=== PATIENT | female | born 1960 | race Caucasian/White ===

== ENCOUNTER 2017-08-18 07:05 | Emergency (ER) | payer BC, SELFPAY ==
[2017-08-18 07:06] VITALS: BP 157/83; PULSE 66; RESP 16; TEMP 36.9; O2SAT 98; BMI 40.6
--- NOTE | 2017-08-18 07:13 | XR_ITS ---
XR chest 2V Ordering Physician: Dereck Workman MD Patient Age: 56 years: Female HISTORY: ITS.REASON: pain TECHNIQUE: PA and lateral chest COMPARISON : 08/26/2014 CXR FINDINGS No significant change since the previous chest film. Vascular markings and lung markings upper normal centrally but unchanged with no focal pneumonia nor consolidation. No pneumothorax no pleural effusion. Heart is upper normal in size borderline cardiomegaly. Chest wall appears satisfactory. Ribs and T-spine appears similar. Marginal osteophytes T-spine again noted on AP view Incidental note Relatively short clavicles bilaterally, anatomical variant. IMPRESSION: Lungs clear with nothing definitely acute. No significant change since 2015 CXR
--- NOTE | 2017-08-18 07:24 | HMH.EDCP ---
ED Disposition Clinical Impression: Chest pain Qualifiers: Chest pain type: unspecified Qualified Code(s): R07.9 - Chest pain, unspecified Disposition: Home, Self-Care Condition on Discharge: Good Instructions: DI for Atypical Chest Pain Additional Instructions: Please find attached a prescription for Norvasc 5 mg to be taken daily, in addition to current blood pressure medication, quinapril. His blood pressure is too low, less than systolic 100mmHg, please take half of either Norvasc or quinapril. Dr. Holliday's office noted to schedule follow-up appointment, for additional outpatient workup. Referrals: Sree Holliday MD [Staff Physician] - Time of Disposition: 11:22 - Critical Care Critical Care Time: No Attestation: On , the high probability of a clinically significant, sudden or life threatening deterioration of the following system(s) required my full and direct attention, intervention and personal management. The time I documented below is in addition to time spent performing reported procedures but includes the following listed in this critical care notation. Medical Decision Making - Medical Records Medical records reviewed: Yes: I reviewed the patient's medical records. Vital Signs: 08/18/17 07:06 08/18/17 08:13 08/18/17 09:30 Temperature 98.4 F Temperature Source Oral Pulse Rate Pulse Rate [Brachial] 66 67 62 Respiratory Rate 16 18 18 Blood Pressure Blood Pressure [Right Arm] 157/83 159/73 146/74 Blood Pressure Mean [Right Arm] 107 101 98 Blood Pressure Source Blood Pressure Source [Right Arm] Automatic Cuff Automatic Cuff Automatic Cuff Blood Pressure Position Blood Pressure Position [Right Arm] Sitting Sitting Sitting 02 Sat by Pulse Oximetry 98 97 95 Oxygen Delivery Method Room Air Room Air Room Air 08/18/17 10:17 08/18/17 11:00 08/18/17 11:37 Temperature 98.1 F Temperature Source Oral Pulse Rate 58 L Pulse Rate [Brachial] 60 58 L Respiratory Rate 18 18 18 Blood Pressure 144/72 Blood Pressure [Right Arm] 153/74 144/72 Blood Pressure Mean [Right Arm] 100 96 Blood Pressure Source Automatic Cuff Blood Pressure Source [Right Arm] Automatic Cuff Automatic Cuff Blood Pressure Position Sitting Blood Pressure Position [Right Arm] Sitting Sitting 02 Sat by Pulse Oximetry 100 97 Oxygen Delivery Method Room Air Room Air Room Air - Lab Data Lab results reviewed: Yes: I reviewed the patient's lab results. Lab Results 08/18/17 07:20: Sodium 139, Potassium 4.1, Chloride 105, Carbon Dioxide 23, Anion Gap 15.1 H, BUN 22 H, Creatinine 1.13 H, Estimated Creat Clear 117, Estimated GFR 49 L, Est GFR ( Amer) 60, Glucose 105, Calcium 9.0, Total Bilirubin 0.4, AST 21, ALT 17, Alkaline Phosphatase 50, CK-MB (CK-2) 1.1, Troponin I < 0.02, Total Protein 7.4, Albumin 4.1, Globulin 3.3 H, Albumin/Globulin Ratio 1.2 08/18/17 07:55: WBC 8.2, RBC 4.56, Hgb 13.9, Hct 42.8, MCV 93.8, MCH 30.4, MCHC 32.4, RDW 13.9, Plt Count 246, MPV 8.6, Neut % (Auto) 48.0, Lymph % (Auto) 41.2, [place] % (Auto) 8.1, Eos % (Auto) 1.9, Baso % (Auto) 0.8, Neut # (Auto) 4.0, Lymph # (Auto) 3.4, [place] # (Auto) 0.7, Eos # (Auto) 0.2, Baso # (Auto) 0.1 08/18/17 07:55: D-Dimer 112 08/18/17 07:55: B-Natriuretic Peptide 23 08/18/17 10:00: Total Creatine Kinase 116, CK-MB (CK-2) 1.0, CK-MB (CK-2) Rel Index 0.9, Troponin I < 0.02 Result diagrams: 08/18/17 07:55 08/18/17 07:20 Orders (Tests/Meds): ED MEDICATIONS Discontinued Medications Generic Name Dose Route Start Last Admin Trade Name Freq PRN Reason Stop Dose Admin Amlodipine Besylate 5 mg 08/18/17 10:04 08/18/17 10:16 Norvasc 5mg Tablet PO 08/18/17 10:05 5 mg ONCE ONE Administration Aspirin 324 mg 08/18/17 07:13 08/18/17 08:12 Aspirin 81mg Chewable Tablet PO 08/18/17 07:14 324 mg ONCE ONE Administration ORDERS Category Date Time Status ECG Request by /Nse Stat Y 08/18/17 07:13 Ordered - Radi
[2017-08-18 08:06] LABS: Basophils # 0.1 K/mm3 (0-0.2); Basophils % 0.8 % (0.1-2.0); Eosinophils # 0.2 K/mm3 (0.0-0.4); Eosinophils % 1.9 % (0.1-12.0); Hematocrit 42.8 % (37.0-47.0); Hemoglobin 13.9 g/dL (12.2-16.2); Lymphocytes # 3.4 K/mm3 (0.7-4.5); Lymphocytes % 41.2 K/mm3 (10-50); Mean Corpuscular HGB Conc 32.4 g/dL (31.8-35.4); Mean Corpuscular Hemoglobin 30.4 pg (27.0-31.2); Mean Corpuscular Volume 93.8 fl (81-99); Mean Platelet Volume 8.6 fl (7.4-10.4); Monocytes # 0.7 K/mm3 (0.1-1.0); Monocytes % 8.1 % (1.7-9.3); Platelet Count 246 K/mm3 (142-424); Red Blood Count 4.56 M/mm3 (4.20-5.40); Red Cell Distribution Width 13.9 % (11.5-17.5); White Blood Count 8.2 K/mm3 (4.8-10.8)
[2017-08-18 08:07] LABS: Alanine Aminotransferase 17 U/L (12-78); Albumin Level 4.1 gm/dL (3.4-5.0); Albumin/Globulin Ratio 1.2 (1.1-1.8); Alkaline Phosphatase 50 U/L (46-116); Anion Gap 15.1 mEq/L (5-15); Aspartate Amino Transferase 21 U/L (15-37); Bilirubin,Total 0.4 mg/dL (0.2-1.0); Blood Urea Nitrogen 22 mg/dL (7-18); Carbon Dioxide 23 mmol/L (21.0-32.0); Chloride 105 mmol/L (98-107); Creatine Kinase MB 1.1 mg/ml (0.0-3.6); Creatinine Clearance Estimated 117 mL/min (0-300); Creatinine,Serum 1.13 mg/dL (0.55-1.02); Estimated Glomerular Filt Rate 49 ml/min (>60); GFR (African American) 60 ML/MIN (>60); Globulin 3.3 gm/dl (1.3-3.2); Glucose 105 mg/dL (74-106); Potassium 4.1 mmoL/L (3.5-5.1); Sodium 139 mmol/L (136-145); Total Protein,Serum 7.4 gm/dL (6.4-8.2); Troponin I < 0.02 ng/ml (0.00-0.06)
[2017-08-18 08:13] VITALS: BP 159/73; PULSE 67; RESP 18; O2SAT 97
[2017-08-18 08:32] LABS: D-Dimer 112 (0-400)
--- NOTE | 2017-08-18 08:58 | PC.NURSE ---
MARIANA GRIJALVA spoke with Dr. Infante at this time
[2017-08-18 09:30] VITALS: BP 146/74; PULSE 62; RESP 18; O2SAT 95
--- NOTE | 2017-08-18 10:03 | CA_ITS ---
PROCEDURE: 2-D M-mode and color Doppler study INDICATIONS FOR THE TEST: Chest pain + COPD Heart Murmur Tobacco Smoking Palpitations Fatigue Syncope Edema+ Hypertension+Diabetes Mellitus Rheumatic Fever SOB EATON Obesity+Hyperlipidemia Family History HD Additional History PATIENT INFORMATION HEIGHT:62 WEIGHT:300 GENDER: Female B/P:157/83 2-D/M-MODE INTERPRETATION: 2-D MEASUREMENTS OBSERVED VALUES IN CMS Right Ventricular Dimension (RVDd) 1.7 Interventricular Septum (Thickness)(IVsd) 1.2 Left Ventricular Internal Dimensions(LVIDd) 5.3 Left Ventricular Posterior Wall (Thickness)(LVPWd) 1.1 Aortic Root 2.7 Aortic Cusp Separation 1.9 Left Atrial Dimensions (LAD) 4.5 2D 1. Left atrium is mildly enlarged, left ventricle is normal size, there is mild concentric left ventricular hypertrophy present, visually estimated ejection fraction 55% with no obvious regional wall motion abnormality. 2. The right atrium and right ventricle are normal size and contractility. 3. The aortic valve is minimally thickened and fibrosed. 4. The mitral valve has degenerative changes both an anterior posterior mitral leaflet. 5. The pulmonic valve is poorly visualized. 6. The tricuspid valve is grossly normal. 7. No significant pericardial effusion noted. DOPPLER INTERROGATION: Doppler interrogation of the aortic, mitral and tricuspid valvular reveals presence of mitral regurgitation which is difficult to quantify, this is likely in moderate to severe range, there is blunting of the systolic forward flow seen in the pulmonary vein, if clinically indicated transesophageal echocardiogram is recommended. There is mild tricuspid regurgitation noted, tricuspid and enteric velocity insufficient for calculation of the right ventricular systolic pressure, grade 1 diastolic dysfunction seen with tissue Doppler evidence of raised left atrial pressure. CONCLUSION: 1. Mildly enlarged left atrium, normal left ventricular size, mild concentric left ventricular hypertrophy, visually estimated ejection fraction 55% with no obvious regional wall motion abnormality, grade 1 diastolic dysfunction seen with tissue Doppler evidence of raised left atrial pressure. 2. Degenerative changes seen in the both anterior and posterior mitral leaflet, associated with mitral regurgitation which is difficult to quantify, this is likely a moderate to severe range, if clinically indicated transesophageal echocardiogram is recommended. 3. Mild tricuspid regurgitation. 4. No significant pericardial effusion noted.
--- NOTE | 2017-08-18 10:07 | HMH.CARDCON2 ---
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 He denies any associated shortness of breath, diaphoresis or nausea. Denies any recent exertional symptoms. She does have a long-standing history of hypertension and hypothyroidism. Patient decided to be seen in the ER. EKG is sinus rhythm and unremarkable. Initial troponin is normal. Cardiology consulted for evaluation and recommendations. Her primary care physician is Dr. Teixeira who recommended a stress test a couple years ago but the patient did not have that performed. Review of Systems - *Cardiovascular Reports chest pain, Reports radiating jaw, neck or arm pain - *Respiratory Denies shortness of breath - *Gastrointestinal Denies abdominal pain [facility] History I have reviewed the patient's past medical history: Yes Medical History: Reports:: Hypertension Denies:: Diabetes Mellitus Type 1, Diabetes Mellitus Type 2, Seizures, Transient Ischemic Attacks (TIA) Other Medical History: Reports: Hypothyroidism Other Surgeries: Yes: No Previous Surgery Amputation: No Fractures: No - *Social History Alcohol Intake: never - Psychiatric History Expresses thoughts of harming self/others: None Suicide Plan Description: No Plan Meds Allergies Allergy/AdvReac Type Severity Reaction Status Date / Time From Penicillin G Sodium Allergy Unknown Uncoded 07/22/17 14:36 PCN (penicillin) Allergy Unknown Uncoded 07/22/17 14:36 Penicillin Allergy Unknown Uncoded 07/22/17 14:36 SULFA (sulfonamide) Allergy Unknown Uncoded 07/22/17 14:36 Exam Vital signs and Labs for Last 24 Hours: Temp Pulse Resp BP Pulse Ox 98.4 F 62 18 146/74 95 08/18/17 07:06 08/18/17 09:30 08/18/17 09:30 08/18/17 09:30 08/18/17 09:30 Laboratory Results - last 24 hr 08/18/17 07:20: Sodium 139, Potassium 4.1, Chloride 105, Carbon Dioxide 23, Anion Gap 15.1 H, BUN 22 H, Creatinine 1.13 H, Estimated Creat Clear 117, Estimated GFR 49 L, Est GFR ( Amer) 60, Glucose 105, Calcium 9.0, Total Bilirubin 0.4, AST 21, ALT 17, Alkaline Phosphatase 50, CK-MB (CK-2) 1.1, Troponin I < 0.02, Total Protein 7.4, Albumin 4.1, Globulin 3.3 H, Albumin/Globulin Ratio 1.2 08/18/17 07:55: WBC 8.2, RBC 4.56, Hgb 13.9, Hct 42.8, MCV 93.8, MCH 30.4, MCHC 32.4, RDW 13.9, Plt Count 246, MPV 8.6, Neut % (Auto) 48.0, Lymph % (Auto) 41.2, [place] % (Auto) 8.1, Eos % (Auto) 1.9, Baso % (Auto) 0.8, Neut # (Auto) 4.0, Lymph # (Auto) 3.4, [place] # (Auto) 0.7, Eos # (Auto) 0.2, Baso # (Auto) 0.1 08/18/17 07:55: D-Dimer 112 08/18/17 07:55: B-Natriuretic Peptide 23 I & O for Last 24 hours: Intake & Output 08/15/17 08/16/17 08/17/17 08/18/17 11:59 11:59 11:59 11:59 Weight 300 lb - *Routine Neck Exam Absent: JVD, carotid bruit - *Routine Respiratory Exam Present: CTA bilaterally - *Routine Cardiovascular Exam Present: RRR. Absent: murmur, gallop - *Routine Extremities Exam Absent: edema, calf tenderness - *Routine Neurological Exam Present: alert, oriented X3, moving all extremities, normal speech Results 08/18/17 07:55 08/18/17 07:20 Cardiac Enzymes 08/18/17 08/18/17 Range/Units 07:20 07:55 AST 21 (15-37) U/L CK-MB (CK-2) 1.1 (0.0-3.6) mg/ml Troponin I < 0.02 (0.00-0.06) ng/ml B-Natriuretic Peptide 23 (0-100) pg/mL Coagulation 08/18/17 Range/Units 07:55 B-Natriuretic Peptide 23 (0-100) pg/mL CBC 08/18/17 Range/Units 07:55 WBC 8.2 (4.8-10.8) K/mm3 RBC 4.56 (4.20-5.40) M/mm3 Hgb 13.9 (12.2-16.2) g/dL Hct 42.8 (37.0-47.0) % Plt Count 246 (142-424) K/mm3 Neut # (Auto) 4.0 (1.8-7.8) K/mm3
--- NOTE | 2017-08-18 10:10 | P.CONS_ITS ---
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 He denies any associated shortness of breath, diaphoresis or nausea. Denies any recent exertional symptoms. She does have a long-standing history of hypertension and hypothyroidism. Patient decided to be seen in the ER. EKG is sinus rhythm and unremarkable. Initial troponin is normal. Cardiology consulted for evaluation and recommendations. Her primary care physician is Dr. Teixeira who recommended a stress test a couple years ago but the patient did not have that performed. Review of Systems - *Cardiovascular Reports chest pain, Reports radiating jaw, neck or arm pain - *Respiratory Denies shortness of breath - *Gastrointestinal Denies abdominal pain [facility] History I have reviewed the patient's past medical history: Yes Medical History: Reports:: Hypertension Denies:: Diabetes Mellitus Type 1, Diabetes Mellitus Type 2, Seizures, Transient Ischemic Attacks (TIA) Other Medical History: Reports: Hypothyroidism Other Surgeries: Yes: No Previous Surgery Amputation: No Fractures: No - *Social History Alcohol Intake: never - Psychiatric History Expresses thoughts of harming self/others: None Suicide Plan Description: No Plan Meds Allergies Allergy/AdvReac Type Severity Reaction Status Date / Time From Penicillin G Sodium Allergy Unknown Uncoded 07/22/17 14:36 PCN (penicillin) Allergy Unknown Uncoded 07/22/17 14:36 Penicillin Allergy Unknown Uncoded 07/22/17 14:36 SULFA (sulfonamide) Allergy Unknown Uncoded 07/22/17 14:36 Exam Vital signs and Labs for Last 24 Hours: Temp Pulse Resp BP Pulse Ox 98.4 F 62 18 146/74 95 08/18/17 07:06 08/18/17 09:30 08/18/17 09:30 08/18/17 09:30 08/18/17 09:30 Laboratory Results - last 24 hr 08/18/17 07:20: Sodium 139, Potassium 4.1, Chloride 105, Carbon Dioxide 23, Anion Gap 15.1 H, BUN 22 H, Creatinine 1.13 H, Estimated Creat Clear 117, Estimated GFR 49 L, Est GFR ( Amer) 60, Glucose 105, Calcium 9.0, Total Bilirubin 0.4, AST 21, ALT 17, Alkaline Phosphatase 50, CK-MB (CK-2) 1.1, Troponin I < 0.02, Total Protein 7.4, Albumin 4.1, Globulin 3.3 H, Albumin/ Globulin Ratio 1.2 08/18/17 07:55: WBC 8.2, RBC 4.56, Hgb 13.9, Hct 42.8, MCV 93.8, MCH 30.4, MCHC 32.4, RDW 13.9, Plt Count 246, MPV 8.6, Neut % (Auto) 48.0, Lymph % (Auto) 41.2 , [place] % (Auto) 8.1, Eos % (Auto) 1.9, Baso % (Auto) 0.8, Neut # (Auto) 4.0, Lymph # (Auto) 3.4, [place] # (Auto) 0.7, Eos # (Auto) 0.2, Baso # (Auto) 0.1 08/18/17 07:55: D-Dimer 112 08/18/17 07:55: B-Natriuretic Peptide 23 I & O for Last 24 hours: Intake & Output 08/15/17 08/16/17 08/17/17 08/18/17 11:59 11:59 11:59 11:59 Weight 300 lb - *Routine Neck Exam Absent: JVD, carotid bruit - *Routine Respiratory Exam Present: CTA bilaterally - *Routine Cardiovascular Exam Present: RRR. Absent: murmur, gallop - *Routine Extremities Exam Absent: edema, calf tenderness - *Routine Neurological Exam Present: alert, oriented X3, moving all extremities, normal speech Results 08/18/17 07:55 08/18/17
[2017-08-18 10:17] VITALS: BP 153/74; PULSE 60; RESP 18; O2SAT 100
--- NOTE | 2017-08-18 10:19 | PC.NURSE ---
pt to CV lab for echo at this time.
[2017-08-18 10:39] LABS: CKMB Relative Index 0.9 U/L (0-4.0); Creatine Kinase 116 U/L (26-192); Troponin I < 0.02 ng/ml (0.00-0.06)
[2017-08-18 11:00] VITALS: BP 144/72; PULSE 58; RESP 18; O2SAT 97
[2017-08-18 11:37] VITALS: BP 144/72; PULSE 58; RESP 18; TEMP 36.7; O2SAT 98
== END 2017-08-18 11:39 | disposition home or self-care (01) ==
PROVIDERS: Emergency Provider Emergency Medicine; Family Provider Internal Medicine; PCP Internal Medicine
DX: R07.9 Chest pain, unspecified (principal); I10 Essential (primary) hypertension; Z79.899 Other long term (current) drug therapy
CPT/HCPCS: 36415; 71046; 80053; 82550; 82553; 83880; 84484; 85025; 85378; 93005; 93041; 93306; 99285

== ENCOUNTER → 2017-10-03 07:04 | Outpatient (CLI) | payer BC, SELFPAY ==
[2017-10-03 03:35] LABS: Basophils # 0.1 K/mm3 (0-0.2); Basophils % 0.7 % (0.1-2.0); Eosinophils # 0.2 K/mm3 (0.0-0.4); Eosinophils % 2.1 % (0.1-12.0); Hematocrit 42.8 % (37.0-47.0); Lymphocytes # 2.6 K/mm3 (0.7-4.5); Lymphocytes % 35.6 K/mm3 (10-50); Mean Corpuscular HGB Conc 32.7 g/dL (31.8-35.4); Mean Corpuscular Hemoglobin 30.5 pg (27.0-31.2); Mean Corpuscular Volume 93.4 fl (81-99); Monocytes # 0.6 K/mm3 (0.1-1.0); Monocytes % 8.2 % (1.7-9.3); Neutrophils % 53.4 % (37.0-80.0); Platelet Count 251 K/mm3 (142-424); Red Blood Count 4.58 M/mm3 (4.20-5.40); Red Cell Distribution Width 13.4 % (11.5-17.5); White Blood Count 7.4 K/mm3 (4.8-10.8)
[2017-10-03 04:50] LABS: Chol/HDL Ratio 3.2 (1-3.5); Cholesterol 180 mg/dL (140-200); Free Thyroxine Index 2.5 ug/dL (5.93-13.13); HDL Cholesterol 56 mg/dL (29-89); LDL Cholesterol 105 mg/dL (0-130); T4 (Thyroxine) 7.4 ug/dl (4.7-13.3); Triglycerides 95 mg/dL (30-200); Triiodothryronine (T3) Uptake 34 % (31-39); VLDL Cholesterol 19 mg/dL (0-40)
== END ==
PROVIDERS: Visit Provider Nurse Practitioner Obstetrics & Gynecology
DX: Z01.419 Encounter for gynecological examination (general) (routine) without abnormal findings (principal)
CPT/HCPCS: 80061; 84436; 84443; 84479; 85025

== ENCOUNTER → 2018-11-12 15:02 | Outpatient (CLI) | payer BC, SELFPAY ==
--- NOTE | 2018-11-12 15:07 | CA_ITS ---
PROCEDURE: 2-D M-mode and color Doppler study INDICATIONS FOR THE TEST: Chest pain COPD Heart Murmur Tobacco Smoking Palpitations Fatigue Syncope EdemaX HypertensionXDiabetes Mellitus Rheumatic Fever SOB EATON ObesityXHyperlipidemia Family History HD Additional History MR PATIENT INFORMATION HEIGHT: 72 WEIGHT:318 GENDER: Female B/P:157/83 2-D/M-MODE INTERPRETATION: 2-D MEASUREMENTS OBSERVED VALUES IN CMS Right Ventricular Dimension (RVDd) 2.1 Interventricular Septum (Thickness)(IVsd) .9 Left Ventricular Internal Dimensions(LVIDd) 5.1 Left Ventricular Posterior Wall (Thickness)(LVPWd) .7 Aortic Root 2.5 Aortic Cusp Separation 2.0 Left Atrial Dimensions (LAD) 3.4 2D 1. Left atrium is mildly enlarged, left ventricle is normal size, mild concentric left ventricular hypertrophy, visually estimated ejection fraction 55% with no regional wall motion abnormality. 2. The right atrium and right ventricle are normal size and contractility. 3. The aortic valve is minimally thickened and fibrosed. 4. The mitral and tricuspid valves are grossly normal. 5. The pulmonic valve is poorly present. 6. No significant pericardial effusion noted. DOPPLER INTERROGATION: Doppler interrogation of the aortic, mitral and tricuspid valvular presence of mild mitral and tricuspid regurgitation, tricuspid regurgitation jet velocity is inadequate for calculation of the right ventricular systolic pressure, grade 1 diastolic dysfunction seen without tissue Doppler evidence of raised left atrial pressure. CONCLUSION: 1. Mildly enlarged left atrium, normal left ventricular size, mild concentric left ventricular hypertrophy, visually estimated ejection fraction 55% with no regional wall motion abnormality, grade 1 diastolic dysfunction seen without tissue Doppler evidence of raised left atrial pressure. 2. Mild mitral and tricuspid regurgitation 3. No significant pericardial effusion noted.
== END ==
PROVIDERS: PCP Internal Medicine; Visit Provider Internal Medicine
DX: I34.0 Nonrheumatic mitral (valve) insufficiency (principal); R09.89 Other specified symptoms and signs involving the circulatory and respiratory systems
CPT/HCPCS: 93306

== ENCOUNTER → 2018-12-29 07:47 | Outpatient (CLI) | payer SELFPAY ==
--- NOTE | 2018-12-29 07:48 | CT_ITS ---
CT heart w calcium score INDICATION: Chest pain ITS.REASON: cp ORDERING PHYSICIAN: Hubert Lai MD PATIENT AGE: 58 years COMPARISON: None TECHNIQUE: Axial images are obtained without contrast. Sagittal and coronal reformatted images are reviewed as well. All CT scans at the facility use one or more dose reduction, viz: automated exposure control, ma/kV adjustment per patient size (including targeted exams where dose is matched to indication, i.e. head), or iterative reconstruction technique. FINDINGS: Gated images are obtained. The coronary artery calcium score is 33 indicating mild plaque burden and moderate cardiovascular disease risk. Incidental note is made of a small hiatal hernia and degenerative change in thoracic spine. IMPRESSION: Mild plaque burden with moderate cardiovascular disease risk
== END ==
PROVIDERS: PCP Internal Medicine; Visit Provider Internal Medicine Cardiovascular Disease
DX: R07.9 Chest pain, unspecified (principal); R06.09 Other forms of dyspnea; E03.9 Hypothyroidism, unspecified; I10 Essential (primary) hypertension
CPT/HCPCS: 75571

== ENCOUNTER → 2018-12-31 12:19 | Outpatient (CLI) | payer BC, SELFPAY ==
--- NOTE | 2018-12-31 12:21 | NM_ITS ---
SPECT MYOCARDIAL PERFUSION SCAN, REST AND STRESS: EXERCISE STRESS: [facility] REVIEW QGS EF AND WALL MOTION EVALUATION: QPS - PERFUSION EVALUATION: HISTORY: Chest pain, SOB, Palpitations, Fatigue, HTN, Family history, Abnormal EKG PROCEDURE: Rest imaging performed after administration of9.62 millicuries Tc MIBI. Dose administered at12:50 p.m., with imaging thereafter. Stress imaging was then performed following5 minutes 34 seconds of exercise stress. The patient achieved a heart [id number] with projected heart rate of136 . Resting BP138/68 with stress 180/70. At maximum exercise stress,30.3 millicuries Tc MIBI administered at2:25 a.m. with minutes thereafter. FINDINGS: Perfusion Evaluation: The single slice spect images as well as the [facility] bull's-eye data summary were reviewed. Wall Motion and Ejection Fraction Evaluation: Gated SPECT review and analysis used to evaluate these features. There is a 63 % left ventricular ejection fraction. There seems to be good wall motion Stress images reveal decreased activity in a portion of the anterior and inferior wall. Rest images reveal uniform myocardial activity IMPRESSION: Reversible ischemia in both portion of the anterior and inferior wall accompanied by normal ejection fraction with mid anterior apical and mid inferior apical hypokinesis. This is a high risk abnormal stress test
--- NOTE | 2018-12-31 14:50 | HMH.ITSHM ---
Current Home Medications as stated by this patient Yamilet Javier or sales solutions representative. []ASA ARMOUR LEVOTHYROXINE HYDROCHLOROTHIAZIDE AMLODIPINE OMEPRAZOLE ZINC
== END ==
PROVIDERS: PCP Internal Medicine; Visit Provider Internal Medicine Cardiovascular Disease
DX: I51.89 Other ill-defined heart diseases (principal); R06.83 Snoring; R07.9 Chest pain, unspecified; R40.0 Somnolence; R53.83 Other fatigue
CPT/HCPCS: 78452; 93017; A9502; G0399

== ENCOUNTER → 2019-01-08 11:20 | Outpatient (CLI) | payer BC, SELFPAY ==
[2019-01-08 16:10] LABS: Anion Gap 20.1 mEq/L (5-15); Blood Urea Nitrogen 28 mg/dL (7-18); Calcium 10.1 mg/dL (8.5-10.1); Carbon Dioxide 24 mmol/L (21.0-32.0); Chloride 100 mmol/L (98-107); Creatinine,Serum 1.09 mg/dL (0.55-1.02); Estimated Glomerular Filt Rate 51 ml/min (>60); GFR (African American) 62 ML/MIN (>60); Glucose 103 mg/dL (74-106); Potassium 4.1 mmoL/L (3.5-5.1); Sodium 140 mmol/L (136-145)
== END ==
PROVIDERS: Visit Provider Internal Medicine Cardiovascular Disease
DX: R06.09 Other forms of dyspnea (principal); E03.9 Hypothyroidism, unspecified; I10 Essential (primary) hypertension; I51.89 Other ill-defined heart diseases; R07.9 Chest pain, unspecified
CPT/HCPCS: 36415; 80048; 83880

== ENCOUNTER → 2019-03-15 07:16 | Outpatient (CLI) | payer BC, SELFPAY ==
[2019-03-15 11:13] LABS: Alanine Aminotransferase 23 U/L (12-78); Anion Gap 13.9 mEq/L (5-15); Blood Urea Nitrogen 21 mg/dL (7-18); Calcium 10.3 mg/dL (8.5-10.1); Carbon Dioxide 27 mmol/L (21.0-32.0); Chloride 101 mmol/L (98-107); Chol/HDL Ratio 2.2 (1-3.5); Cholesterol 119 mg/dL (140-200); Creatinine,Serum 0.82 mg/dL (0.55-1.02); Estimated Glomerular Filt Rate 71 ml/min (>60); GFR (African American) 86 ML/MIN (>60); Glucose 102 mg/dL (74-106); HDL Cholesterol 53 mg/dL (29-89); LDL Cholesterol 51 mg/dL (0-130); Potassium 3.9 mmoL/L (3.5-5.1); Sodium 138 mmol/L (136-145); Triglycerides 75 mg/dL (30-200); VLDL Cholesterol 15 mg/dL (0-40)
== END ==
PROVIDERS: Visit Provider Internal Medicine
DX: I10 Essential (primary) hypertension (principal); E78.5 Hyperlipidemia, unspecified; E03.9 Hypothyroidism, unspecified
CPT/HCPCS: 36415; 80048; 80061; 84443; 84460

== ENCOUNTER → 2019-04-13 08:52 | Outpatient (CLI) | payer BC, SELFPAY ==
--- NOTE | 2019-04-13 08:55 | XR_ITS ---
PROCEDURE: XR FOOT WT BEARING RT 3V CLINICAL INDICATION: pain Pain and swelling COMPARISON: XR FOOT WT BEARING LT 3V from 04/13/2019 FINDINGS: No acute fracture or dislocation. There are osteoarthritic changes at the 1st metatarsophalangeal joint and in the midfoot at the talonavicular joint and navicular cuneiform joint. Osteoarthritic changes are present at the metatarsal tarsal joint dorsally. There is a small calcaneal spur. IMPRESSION: Osteoarthritic changes Dictated by: Landon Rivero MD 04/13/2019 18:20 Electronically signed by Landon Rivero MD in [place] 04/13/2019 18:20
--- NOTE | 2019-04-13 08:55 | XR_ITS ---
PROCEDURE: XR FOOT WT BEARING LT 3V CLINICAL INDICATION: pain COMPARISON: No exams were available for comparison FINDINGS: There are mild osteoarthritic changes at the 1st metatarsophalangeal joint and the tarsal metatarsal joints as well as the talonavicular joint and navicular cuneiform joint. There is borderline pes planus. Small calcaneal spur is noted. No fracture or dislocation. No lytic or blastic change. Osteoarthritic changes are present at the 1st metatarsal tarsal joint.. Soft tissue calcification is noted at the distal and medial aspect of the leg and may be due to venous stasis. IMPRESSION: Osteoarthritic change, no acute finding Dictated by: Landon Rivero MD 04/13/2019 18:21 Electronically signed by Landon Rivero MD in [place] 04/13/2019 18:21
--- NOTE | 2019-04-13 08:55 | XR_ITS ---
PROCEDURE: XR ANKLE WT BEARING RT MIN 3V CLINICAL INDICATION: pain Prior surgery COMPARISON: No exams were available for comparison FINDINGS: There is a screw within the medial malleolus projecting proximally. There is ossification of the distal tibial fibular syndesmosis. The ankle mortise is preserved. Bony hypertrophic changes are present at the distal aspect of the lateral malleolus. There are mild osteoarthritic changes of the ankle joint as well as sclerosis of the posterior subtalar joint. IMPRESSION: Posttraumatic/postsurgical and degenerative changes as described above, no acute finding Dictated by: Lnadon Rivero MD 04/13/2019 18:23 Electronically signed by Landon Rivero MD in [place] 04/13/2019 18:23
--- NOTE | 2019-04-13 08:55 | XR_ITS ---
PROCEDURE: XR ANKLE WT BEARING LT MIN 3V CLINICAL INDICATION: pain Swelling and pain COMPARISON: No exams were available for comparison FINDINGS: No bony or joint abnormality. There is mild generalized soft tissue swelling medially with faint soft tissue calcification along the distal aspect of the leg medially and anteriorly which may represent vascular calcification. Osteoarthritic changes are present involving the midfoot with pes planus along with a small calcaneal spur and a small area of exostosis along the inferior aspect of the calcaneus. IMPRESSION: 1. No acute bony findings. 2. Venous calcification which may be seen with venous stasis 3. 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
== END ==
PROVIDERS: PCP Internal Medicine; Visit Provider Podiatrist
DX: M20.12 Hallux valgus (acquired), left foot (principal); M20.42 Other hammer toe(s) (acquired), left foot; Z87.81 Personal history of (healed) traumatic fracture; B35.1 Tinea unguium; L60.3 Nail dystrophy; M79.674 Pain in right toe(s)
CPT/HCPCS: 73610; 73630; 87102; 87206; 87220

== ENCOUNTER → 2019-04-14 09:04 | Outpatient (CLI) | payer BC, SELFPAY ==
--- NOTE | 2019-04-14 09:07 | MM_ITS ---
PROCEDURE: MM DIG SCREENING MAMM BI W/CAD Patient Age:58Y CLINICAL INDICATION: Routine screening mammogramFollow-up asymmetry But no hormones but no new complaints. Previous mammotome biopsy left breast Family history. Sister with breast cancer in her 30s; maternal grandmother with breast cancer in her 70s COMPARISON: DMSB DIGITAL MAMM-SCREEN BILATERAL from 03/29/2011 DMSB DIGITAL MAMM-SCREEN BILATERAL from 05/01/2012 DMDBAV DIG MAMM-DX JÚNIOR ADD VIEWS from 12/15/2013 DMSB DIG MAMM-SCREEN JÚNIOR from 03/06/2016 DMDXUWAL DIG MAMM-DX UNI LT W ADD VIEW from 03/28/2016 DMDXUAVL DIG MAMM-DX UNI A/VWS-LT W/CAD from 10/21/2016 TECHNIQUE: Standard CC and MLO images were obtained. R2 CAD reviewed. Additional CC and right MLO views performed FINDINGS: No significant new findings: Again note prominent stable asymmetry of breast Left breast: We again see the dense asymmetric area of glandular tissue throughout the upper outer quadrant left breast but this area is been seen on multiple prior studies dating back to at least 2013, 2011. Of reports note that this area was previously biopsied in 2013 revealing benign fibrocystic breast changes. Although asymmetric there been relative lack of change since multiple old studies additionally supporting benign tissue in this region.. In fact the tissue here appears less dense than 2014 studies the no significant new areas of concern are identified.. Other areas of scattered density/nodularity at left breast have been seen on previous studies and this can be followed. This is a somewhat difficult to visualize evaluate breast thus annual follow-up a recommended/encouraged Right breast: No new areas of concern.. IMPRESSION: Stable mammogram. No new areas of significant concern Bilateral follow-up 1 year recommended and should be emphasized/encouraged Prominent asymmetry tissue at the left breast again noted. If any palpable areas developed ultrasound is useful complement mammography in areas of dense breast, as seen here on left BI-RAD Category: 2 Benign Finding(s) FOLLOW-UP: 1YR 1 Year Follow-up (A letter has been sent to the patient regarding results of the study.) Dictated by: Miguelito Kearns MD 04/28/2019 08:23 Electronically signed by Miguelito Kearns MD in [place] 04/28/2019 08:23
== END ==
PROVIDERS: PCP Internal Medicine; Visit Provider Nurse Practitioner Obstetrics & Gynecology
DX: Z12.31 Encounter for screening mammogram for malignant neoplasm of breast (principal)
CPT/HCPCS: 77067

== ENCOUNTER → 2019-07-22 09:15 | Outpatient (CLI) | payer BC, SELFPAY ==
[2019-07-22 10:20] LABS: Alanine Aminotransferase 11 U/L (12-78); Albumin Level 4.4 gm/dL (3.4-5.0); Alkaline Phosphatase 63 U/L (46-116); Aspartate Amino Transferase 10 U/L (15-37); Bilirubin,Direct 0.2 mg/dL (0.0-0.2); Bilirubin,Indirect 0.7 mg/dL (0.0-0.9); Bilirubin,Total 0.9 mg/dL (0.2-1.0); Chol/HDL Ratio 1.9 (1-3.5); Cholesterol 132 mg/dL (140-200); HDL Cholesterol 71 mg/dL (29-89); LDL Cholesterol 50 mg/dL (0-130); Total Protein,Serum 8.2 gm/dL (6.4-8.2); Triglycerides 54 mg/dL (30-200); VLDL Cholesterol 11 mg/dL (0-40)
== END ==
PROVIDERS: Visit Provider Internal Medicine Cardiovascular Disease
DX: R06.09 Other forms of dyspnea (principal); E03.9 Hypothyroidism, unspecified; I10 Essential (primary) hypertension; I51.89 Other ill-defined heart diseases
CPT/HCPCS: 36415; 80061; 80076

== ENCOUNTER → 2020-04-24 11:39 | Outpatient (CLI) | payer BC, SELFPAY ==
--- NOTE | 2020-04-24 | XR_ITS ---
PROCEDURE: XR CLAVICLE RT CLINICAL INDICATION: R CLAVICLE PAIN COMPARISON: No exams were available for comparison FINDINGS: Osteoarthritic change involves the AC joint with bony hypertrophy of the distal aspect of the clavicle. No fracture or dislocation. No lytic or blastic change. IMPRESSION: Osteoarthritis of the AC joint Dictated by: Landon Rivero MD 04/24/2020 12:12 Landon Rivero MD in [place] 04/24/2020 12:12
--- NOTE | 2020-04-24 | XR_ITS ---
PROCEDURE: XR SHOULDER RT MIN 2V CLINICAL INDICATION: R SHOULDER PAIN Right shoulder pain with limited range of motion COMPARISON: No exams were available for comparison FINDINGS: Osteoarthritic changes are present at the acromioclavicular joint. A lucency is noted in the distal aspect of the clavicle consistent with a small cystic lesion at 5 mm. There is some mild hypertrophic change along the undersurface of the acromion with subacromial stenosis. There are mild osteoarthritic changes also of the glenohumeral joint with lobular calcification lateral to the greater tuberosity consistent with calcific tendinitis. No fracture or dislocation. No lytic or blastic change. IMPRESSION: Osteoarthritic change of the AC joint and glenohumeral joint with subacromial stenosis which may result in impingement symptomatology upon the rotator cuff. Calcific tendinitis Dictated by: Landon Rivero MD 04/24/2020 12:10 Landon Rivero MD in [place] 04/24/2020 12:10
== END ==
PROVIDERS: PCP Internal Medicine; Visit Provider Internal Medicine
DX: M25.511 Pain in right shoulder (principal)
CPT/HCPCS: 73000; 73030

== ENCOUNTER → 2020-04-27 06:59 | Outpatient (CLI) | payer BC, SELFPAY ==
--- NOTE | 2020-04-27 07:05 | CT_ITS ---
PROCEDURE: CT CHEST WO CON CLINICAL INDICATION: R SHOULDER PAIN SUBLUXATION OF RIGHT STERNOCLAVICLULAR sternoclavicular subluxation right no trauma COMPARISON: DX XR CLAVICLE RT from 04/24/2020 TECHNIQUE: Axial images obtained with sagittal and coronal reformats. All CT scans at the facility use one or more dose reduction, viz: automated exposure control, ma/kV adjustment per patient size (including targeted exams where dose is matched to indication, i.e. head), or iterative reconstruction technique. FINDINGS: Exam is performed for sternoclavicular subluxation. There are hypertrophic changes of both sternoclavicular joints with a mild degree of pannus formation. Osteoarthritic changes are present at the sternoclavicular joints. There appears to be minimal anterior subluxation of the medial head of the clavicle on the right at the sternoclavicular joint. A small calcific density is present along the medial and posterior aspect of the clavicular head and could represent a small fragment or periarticular ossification. A small calcific density is present just posterior to the manubrium on the right and there is a small spur projecting off the medial aspect of the left clavicular head. There are minor subchondral cystic changes of the right clavicular head. The manubrium has an unremarkable appearance. No mediastinal or hilar mass or adenopathy. There is asymmetric increased soft tissue density of the left breast which has been noted on prior mammograms. Calcified granuloma is present in the right upper lobe. There is a noncalcified nodule in the right upper lobe inferiorly at 4 mm. Atelectatic or fibrotic changes are present within the lingula. There is a small hiatal hernia. Calcific tendonitis noted of the right shoulder. IMPRESSION: Hypertrophic and osteoarthritic changes are present involving the sternoclavicular joints with mild anterior subluxation of the right clavicular head. There is a small calcific density adjacent to the head of the clavicle which could be due to a small avulsion injury or incidental soft tissue calcification. No gunnar dislocation. Dictated by: Landon Rivero MD 04/29/2020 08:23 Landon Rivero MD in [place] 04/29/2020 08:23
--- NOTE | 2020-04-27 07:34 | MM_ITS ---
PROCEDURE: MM DIG SCREENING MAMM BI W/CAD Digital Breast Tomosynthesis Included CLINICAL INDICATION: Routine Screening Mammogram There is a history of breast cancer in the patient's sister diagnosed in her 30s and the patient's maternal grandmother diagnosed after menopause. There has been a previous biopsy left breast for benign disease. COMPARISON: MG DMDXUWAL DIG MAMM-DX UNI LT W ADD VIEW from 03/28/2016 MG DMDXUAVL DIG MAMM-DX UNI A/VWS-LT W/CAD from 10/21/2016 MG MM DIG SCREENING MAMM BI W/CAD from 04/14/2019 TECHNIQUE: Standard CC and MLO images and 3D Tomosynthesis was obtained. R2 CAD reviewed. FINDINGS: Moderate scattered fibroglandular densities are seen in both breast. There is a benign-appearing microcalcification right breast, there is a mole marker on each breast. There is stable asymmetrically increased glandular elements upper-outer quadrant left breast. There are few scattered benign-appearing microcalcifications in each breast. There is no new or suspicious lesion in either breast and no suspicious microcalcifications. IMPRESSION: Fibrofatty parenchyma with no suspicious lesions seen BI-RAD Category: 2 Benign Finding(s) FOLLOW-UP: 1YR 1 Year Follow-up (A letter has been sent to the patient regarding results of the study.) Dictated by: Dr. Dereck Davis MD 05/04/2020 16:34 Dr. Dereck Davis MD in [place] 05/04/2020 16:34
== END ==
PROVIDERS: PCP Internal Medicine; Visit Provider Internal Medicine
DX: Z12.31 Encounter for screening mammogram for malignant neoplasm of breast (principal)
CPT/HCPCS: 71250; 77063; 77067

== ENCOUNTER 2020-08-01 14:15 | Emergency (ER) | payer BC, SELFPAY ==
[2020-08-01 14:15] VITALS: BP 142/66; PULSE 66; RESP 20; TEMP 36.6; O2SAT 98; BMI 33.2
--- NOTE | 2020-08-01 14:41 | HMH.EDUTC ---
[facility] [place] Disposition Clinical Impression: Viral syndrome, Bronchitis Disposition: Home, Self-Care Condition on Discharge: Good Instructions: Preventing the Spread of Coronavirus Discharge Instructions Additional Instructions: Drink plenty of fluids. Take tylenol or ibuprofen for pain or fever. Take the medications as directed. Follow up with your regular doctor. GO TO THE ER FOR ANY WORSENING SYMPTOMS Prescriptions: Benzonatate [Tessalon Perle 100mg Cap] 100 mg PO TIDP PRN #30 cap PRN Reason: Cough Transmission Status: Received by [facility] Azithromycin [Z-Morris 250mg Tab*] 250 mg PO UD DOSE PK #6 tab Transmission Status: Received by [facility] Referrals: George Teixeira [Primary Care Provider] - Time of Disposition: 15:01 Medical Decision Making - Medical Records Medical records reviewed: No: I reviewed the patient's medical records. - Marco Inquiry Pt receiving controlled substance: No Vital Signs: 08/01/20 14:15 08/01/20 14:48 Temperature 97.9 F 97.9 F Temperature Source Oral Pulse Rate 66 Pulse Rate [Left Brachial] 66 Respiratory Rate 20 20 Blood Pressure 142/66 H Blood Pressure [Left Arm] 142/66 H Blood Pressure Mean [Left Arm] 91 Blood Pressure Source [Left Arm] Automatic Cuff Blood Pressure Position [Left Arm] Sitting 02 Sat by Pulse Oximetry 98 Oxygen Delivery Method Room Air - Lab Data Lab results reviewed: Yes: I reviewed the patient's lab results. Lab Results 08/01/20 14:37: Influenza Type A Ag Negative, Influenza Type B Ag Negative Orders (Tests/Meds): ORDERS Category Date Time Status Covid-19 Nasal PCR Sendout P&C Stat Lab 08/01/20 14:25 Received [facility] [place] HPI - General Stated complaint: weakness, covid test Time Seen by Provider: 08/01/20 14:41 Mode of Arrival: Ambulatory Source of Information: Patient Limitations: No Limitations Description of Symptoms (Recalled from Triage Doc. by RN): PATIENT C/O WEAKNESS, FATIGUE, AND CONGESTION X 3 DAYS. REQUESTING COVID TEST HEENT Symptoms (Recalled from RN notes): Yes Resp Symptoms (Recalled from RN notes): No Skin Symptoms (Recalled from RN notes): No MS Symptoms (Recalled from RN notes): No Functional Status (Recalled from RN notes): WNL - History of Present Illness Provider Complaint: She states that for the past 3 days she has had a cough, congestion, and she has felt fatigued. She denies any fever or chills. - Related Data Home Medications Medication Instructions Recorded Confirmed aspirin 81 mg tablet,delayed 81 mg PO ONCE 10/06/17 07/22/19 release hydrochlorothiazide 25 mg tablet 25 mg PO DAILY 12/17/18 07/22/19 levothyroxine 75 mcg tablet 100 mcg PO ONCE tab 12/17/18 07/22/19 multivitamin 1 tab PO DAILY 12/17/18 07/22/19 quinapril 5 mg tablet 40 mg PO DAILY tab 12/17/18 07/22/19 zinc acetate 50 mg (zinc) capsule 50 mg PO DAILY 12/17/18 07/22/19 turmeric root extract 500 mg 500 mg PO DAILY 04/13/19 07/22/19 capsule Previous Rx's Medication Instructions Recorded ciclopirox 8 % topical solution 1 applic TOPICAL DAILY 60 Days 04/13/19 #6.6 ml ketoconazole 2 % topical cream 1 applic TOPICAL QDAY #30 g 04/13/19 thyroid (pork) 15 mg tablet 15 mg PO DAILY #30 tab 07/19/19 atorvastatin 40 mg tablet 40 mg PO QHS #30 tab 06/12/20 Azithromycin [Z-Morris 250mg Tab*] 250 mg PO UD DOSE PK #6 tab 08/01/20 Benzonatate [Tessalon Perle 100mg 100 mg PO TIDP PRN #30 cap 08/01/20 Cap] Allergies Allergy/AdvReac Type Severity Reaction Status Date / Time No Known Allergies Allergy Verified 08/01/20 14:38 - Worker's Comp Is this a Worker's Comp case?: No H History - Hepatitis A Screen Drug use history?: No High risk sexual behaviors?: No History of sexually transmitted infection?: No Currently employed?: No Childcare worker?: No Do you have indoor plumbing?: Yes Do you have electricity?: Yes Attestation statement:: This patient has been screened for Hepat
[2020-08-01 14:45] LABS: UTC Influenza A Antigen Negative (Negative); UTC Influenza B Antigen Negative (Negative)
[2020-08-01 14:48] VITALS: BP 142/66; PULSE 66; RESP 20; TEMP 36.6; O2SAT 98
[2020-08-02 09:49] LABS: Covid-19 Nasal PCR Sendout P&C Negative
== END 2020-08-01 15:10 | disposition home or self-care (01) ==
PROVIDERS: Emergency Provider Nurse Practitioner Family; PCP Internal Medicine
DX: Z20.828 Contact with and (suspected) exposure to other viral communicable diseases (principal); J20.9 Acute bronchitis, unspecified; B34.9 Viral infection, unspecified; E03.9 Hypothyroidism, unspecified; I10 Essential (primary) hypertension; K21.9 Gastro-esophageal reflux disease without esophagitis; Z79.899 Other long term (current) drug therapy
CPT/HCPCS: 87804; 99201; U0004

== ENCOUNTER → 2021-04-16 08:51 | Outpatient (CLI) | payer BC, SELFPAY | PROVIDERS: PCP Internal Medicine; Visit Provider Nurse Practitioner | DX: Z20.822 Contact with and (suspected) exposure to COVID-19 (principal) | CPT/HCPCS: C9803; U0003; U0005 ==

== ENCOUNTER → 2021-04-21 23:59 | Outpatient (CLI) | payer BC, SELFPAY ==
[2021-04-22 01:20] LABS: Influenza A, PCR Not Detected (NotDetected); Influenza B, PCR Not Detected (NotDetected)
[2021-04-22 01:46] LABS: Coronavirus 19, PCR Detected (NotDetected)
== END ==
PROVIDERS: PCP Internal Medicine; Visit Provider Emergency Medicine
DX: Z20.822 Contact with and (suspected) exposure to COVID-19 (principal); U07.1 COVID-19
CPT/HCPCS: C9803; U0003; U0005

== ENCOUNTER → 2021-04-24 16:00 | Outpatient (CLI) | payer BC, SELFPAY ==
[2021-04-24] VITALS (7 sets, daily range): BP systolic 127–138; BP diastolic 65–91; PULSE 58–66; RESP 18; TEMP 36.7–36.9; O2SAT 96–100
== END ==
PROVIDERS: PCP Internal Medicine; Visit Provider Internal Medicine
DX: U07.1 COVID-19 (principal)
CPT/HCPCS: 96365

== ENCOUNTER 2022-01-30 10:44 | Emergency (ER) | payer BC, OTHER, SELFPAY ==
[2022-01-30 10:50] VITALS: BP 141/92; PULSE 83; RESP 16; TEMP 36.9; O2SAT 97; BMI 40.1
[2022-01-30 11:05] VITALS: BP 141/92; PULSE 83; RESP 16; TEMP 36.9; O2SAT 97
--- NOTE | 2022-01-30 11:08 | HMH.EDUTC ---
[facility] [place] Disposition Clinical Impression: Bronchitis Sinusitis Qualifiers: Sinusitis location: unspecified location Chronicity: unspecified Qualified Code(s): J32.9 - Chronic sinusitis, unspecified Disposition: Home, Self-Care Condition on Discharge: Good Instructions: Sinusitis, Cough, DI for Sinusitis Additional Instructions: *Monitor Temp, Over the counter Motrin or Tylenol as directed/as needed Tylenol every 4 hours and Motrin every 6 hours (as long as your family doctor has told you that you can take it) for fever or pain. and straight to ER if unable to lower temp less than 101.0 after medication given *Warm salt water gargles may help to soothe the throat *Throat Lozenges *Warm fluids like tea with honey may help to soothe the throat *Sleep elevated *Humidifier/Vaporizer Follow up IMMEDIATELY for new or worsening symptoms or no Noticeable improvement over the next 48-72 hours. 911 for difficulty breathing or swallowing You were tested for today for COVID19 your test result should be back in the next 24-48 hours, you may check your results on the [facility] My Health Portal Make sure to take your Vitamins Vit. C Vit D and Zinc if you can take them Prescriptions: Benzonatate [Benzonatate 100mg cap] 100 mg PO Q8HP PRN #30 cap PRN Reason: Cough Transmission Status: Pending to [facility] predniSONE [Deltasone 10mg tablet] 10 mg PO BID 5 Days #10 tab Transmission Status: Pending to [facility] Azithromycin [Z-Morris 250mg Tab] 250 mg PO DIRECTED #6 tab Transmission Status: Pending to [facility] Referrals: George Teixeira MD [Primary Care Provider] - As needed Forms: Work/School Release Time of Disposition: 11:22 Medical Decision Making - Marco Inquiry Pt receiving controlled substance: No Marco was queried for this patient: No Vital Signs: 01/30/22 10:50 01/30/22 11:05 Temperature 98.4 F 98.4 F Temperature Source Oral Pulse Rate 83 Pulse Rate [Right Brachial] 83 Respiratory Rate 16 16 Blood Pressure 141/92 H Blood Pressure [Right Arm] 141/92 H Blood Pressure Mean [Right Arm] 108 Blood Pressure Source [Right Arm] Automatic Cuff Blood Pressure Position [Right Arm] Sitting 02 Sat by Pulse Oximetry 97 Oxygen Delivery Method Room Air Orders (Tests/Meds): ORDERS Category Date Time Status Full Resp Panel w/COVID ([facility]) Routine Lab 01/30/22 11:05 Ordered Medical Decision Narrative: Patient state that she has taken azithromycin and prednisone in the past without complications or reactions [facility] [place] HPI - General Stated complaint: cough, chills, BHATT Time Seen by Provider: 01/30/22 11:08 Mode of Arrival: Ambulatory Source of Information: Patient Limitations: No Limitations Description of Symptoms (Recalled from Triage Doc. by RN): PATIENT C/O COUGH, HEADACHE, SINUS DRAINAGE, AND CHILLS HEENT Symptoms (Recalled from RN notes): Yes Resp Symptoms (Recalled from RN notes): Yes Skin Symptoms (Recalled from RN notes): No MS Symptoms (Recalled from RN notes): No Functional Status (Recalled from RN notes): WNL - History of Present Illness Provider Complaint: Patient state that she has been having sinus pain and pressure, drianage, cough and headache States that she has had a productive cough at times States that today she was still not feeling well and suppose to work tomorrow so she wanted to come in and get checked - Related Data Home Medications Medication Instructions Recorded Confirmed aspirin 81 mg tablet,delayed 81 mg PO ONCE 10/06/17 08/24/20 release hydrochlorothiazide 25 mg tablet 25 mg PO DAILY 12/17/18 08/24/20 levothyroxine 75 mcg tablet 100 mcg PO ONCE tab 12/17/18 08/24/20 multivitamin 1 tab PO DAILY 12/17/18 08/24/20 quinapril 5 mg tablet 40 mg PO DAILY tab 12/17/18 08/24/20 zinc acetate 50 mg (zinc) capsule 50 mg PO DAILY 12/17/18 08/24/20 turmeric root extract 500 mg 500 mg PO DAILY 04/13/19 08/24/20 capsule Previous Rx's [facility]
[2022-01-30 11:21] LABS: Adenovirus,PCR Not Detected (NotDetected); Bordetella Pertussis Not Detected (NotDetected); Chlamydophila Pneumoniae, PCR Not Detected (NotDetected); Coronavirus 229E Not Detected (NotDetected); Coronavirus NL63 Not Detected (NotDetected); Coronavirus OC43 Not Detected (NotDetected); Coronovirus HKU1,PCR Not Detected (NotDetected); Human Metapneumovirus Not Detected (NotDetected); Influenza A, PCR Not Detected (NotDetected); Influenza AH1, 2009 Not Detected (NotDetected); Influenza AH1, PCR Not Detected (NotDetected); Influenza AH3,PCR Not Detected (NotDetected); Influenza B, PCR Not Detected (NotDetected); Mycoplasma Pneumoniae, PCR Not Detected (NotDetected); Parainfluenza 1, PCR Not Detected (NotDetected); Parainfluenza 2, PCR Not Detected (NotDetected); Parainfluenza 3, PCR Not Detected (NotDetected); Parainfluenza 4, PCR Not Detected (NotDetected); Respiratory Syncytial Virus Not Detected (NotDetected); Rhinovirus/Enterovirus Not Detected (NotDetected)
[2022-01-30 13:26] LABS: Coronavirus 19, PCR Detected (NotDetected)
== END 2022-01-30 11:28 | disposition home or self-care (01) ==
PROVIDERS: Emergency Provider Nurse Practitioner; PCP Internal Medicine
DX: J40 Bronchitis, not specified as acute or chronic (principal); J32.9 Chronic sinusitis, unspecified
CPT/HCPCS: 87581; 87632; 87798; 99212; C9803; G0463; U0003; U0005

== ENCOUNTER → 2022-03-21 09:35 | Outpatient (CLI) | payer BC, OTHER, SELFPAY ==
[2022-03-21 11:01] LABS: Basophils # 0.1 K/mm3 (0-0.2); Eosinophils # 0.2 K/mm3 (0.0-0.4); Eosinophils % 2.4 % (0.1-12.0); Hematocrit 42.5 % (37.0-47.0); Hemoglobin 13.3 g/dL (12.2-16.2); Lymphocytes # 2.1 K/mm3 (0.7-4.5); Lymphocytes % 32.7 % (10-50); Mean Corpuscular HGB Conc 31.3 g/dL (31.8-35.4); Mean Corpuscular Hemoglobin 30.2 pg (27.0-31.2); Mean Corpuscular Volume 96.5 fl (81-99); Mean Platelet Volume 9.5 fl (7.4-10.4); Monocytes # 0.6 K/mm3 (0.1-1.0); Monocytes % 9.7 % (1.7-9.3); Neutrophils # 3.4 K/mm3 (1.8-7.8); Neutrophils % 54.3 % (37.0-80.0); Platelet Count 253 K/mm3 (142-424); White Blood Count 6.3 K/mm3 (4.8-10.8)
[2022-03-21 11:18] LABS: Chloride 106 mmol/L (98-107); Sodium 140 mmol/L (136-145)
[2022-03-21 11:19] LABS: Potassium 5.2 mmoL/L (3.5-5.1)
[2022-03-21 11:21] LABS: Alanine Aminotransferase 14 U/L (12-78); Albumin Level 4.5 g/dl (3.5-5.0); Albumin/Globulin Ratio 1.7 (1.1-1.8); Alkaline Phosphatase 66 U/L (38-126); Anion Gap 12.2 mEq/L (5-15); Aspartate Amino Transferase 29 U/L (14-36); Bilirubin,Total 1.1 mg/dl (0.2-1.3); Blood Urea Nitrogen 17 mg/dl (7-17); Carbon Dioxide 27 mmol/L (22.0-30.0); Cholesterol 126 mg/dl (140-200); Estimated Glomerular Filt Rate 85 ml/min (>60); GFR (African American) 102 ML/MIN (>60); Globulin 2.6 g/dL (1.3-3.2); Total Protein,Serum 7.1 g/dl (6.3-8.2); Triglycerides 122 mg/dl (30-150); VLDL Cholesterol 24 mg/dL (0-40)
[2022-03-21 11:22] LABS: Calcium 10.4 mg/dl (8.4-10.2); Chol/HDL Ratio 2.2 (1-3.5); Glucose 110 mg/dl (74-100); HDL Cholesterol 57 mg/dl (40-60)
[2022-03-22 10:46] LABS: Direct LDL Cholesterol 49 mg/dL (100-129)
== END ==
PROVIDERS: PCP Internal Medicine; Visit Provider Internal Medicine
DX: E03.9 Hypothyroidism, unspecified (principal); I11.0 Hypertensive heart disease with heart failure; I50.32 Chronic diastolic (congestive) heart failure; I34.0 Nonrheumatic mitral (valve) insufficiency; E78.5 Hyperlipidemia, unspecified; G56.01 Carpal tunnel syndrome, right upper limb
CPT/HCPCS: 36415; 80053; 80061; 84443; 85025

== ENCOUNTER → 2022-05-09 09:31 | Outpatient (CLI) | payer BC, OTHER, SELFPAY ==
[2022-05-09 11:15] LABS: Chloride 101 mmol/L (98-107); Potassium 4.7 mmoL/L (3.5-5.1); Sodium 140 mmol/L (136-145)
[2022-05-09 11:18] LABS: Anion Gap 14.7 mEq/L (5-15); Blood Urea Nitrogen 19 mg/dl (7-17); Calcium 9.7 mg/dl (8.4-10.2); Carbon Dioxide 29 mmol/L (22.0-30.0); Estimated Glomerular Filt Rate 85 ml/min (>60); GFR (African American) 102 ML/MIN (>60); Glucose 97 mg/dl (74-100)
== END ==
PROVIDERS: PCP Internal Medicine; Visit Provider Internal Medicine
DX: E87.5 Hyperkalemia (principal); R73.9 Hyperglycemia, unspecified
CPT/HCPCS: 36415; 80048

== ENCOUNTER → 2023-02-06 07:49 | Outpatient (CLI) | payer BC, OTHER, SELFPAY ==
--- NOTE | 2023-02-06 07:56 | MM_ITS ---
PROCEDURE INFORMATION: Exam: MG Bilateral Screening 3D Mammography Exam date and time: 02/06/2023 7:46 AM Age: 62 years old Clinical indication: Screening mammogram TECHNIQUE: Imaging protocol: Bilateral Screening tomosynthesis and 2D mammography including computer-aided detection (CAD) when performed. COMPARISON: 1. MG MM DIG SCREENING MAMM BI W/CAD 04/27/2020 8:03 AM 2. MG MM DIG SCREENING MAMM BI W/CAD 04/14/2019 9:26 AM 3. MG DMDXUAVL DIG MAMM-DX UNI A/VWS-LT W/CAD 10/21/2016 5:12 PM 4. MG DMDXUWAL DIG MAMM-DX UNI LT W ADD VIEW 03/28/2016 3:46 PM FINDINGS: MAMMOGRAPHY: Breast composition: There are scattered areas of fibroglandular density. Mass: None. Architectural distortion: No new or suspicious architectural distortion. Calcifications: No new or suspicious calcifications are present Asymmetric density: No new or suspicious asymmetric density is present Skin thickening: None. Axillary adenopathy: None. IMPRESSION: No mammographic evidence of malignancy. Recommend annual screening mammography unless otherwise clinically indicated. ASSESSMENT: BI-RADS category 1: Negative
== END ==
PROVIDERS: PCP Internal Medicine; Visit Provider Internal Medicine
DX: Z12.31 Encounter for screening mammogram for malignant neoplasm of breast (principal)
CPT/HCPCS: 77063; 77067

== ENCOUNTER → 2023-03-05 14:42 | Outpatient (CLI) | payer BC, OTHER, SELFPAY ==
[2023-03-05 15:43] LABS: Basophils % 0.7 % (0.1-2.0); Eosinophils # 0.1 K/mm3 (0.0-0.4); Eosinophils % 2.3 % (0.1-12.0); Hematocrit 42.1 % (37.0-47.0); Hemoglobin 13.5 g/dL (12.2-16.2); Lymphocytes % 34.8 % (10-50); Mean Corpuscular Hemoglobin 29.7 pg (27.0-31.2); Mean Corpuscular Volume 92.8 fl (81-99); Mean Platelet Volume 11.3 fl (7.4-10.4); Monocytes # 0.6 K/mm3 (0.1-1.0); Neutrophils % 52.1 % (37.0-80.0); Platelet Count 227 K/mm3 (142-424); Red Blood Count 4.54 M/mm3 (4.20-5.40); Red Cell Distribution Width 13.8 % (11.5-17.5); White Blood Count 5.8 K/mm3 (4.8-10.8)
[2023-03-05 16:05] LABS: Alanine Aminotransferase 14 U/L (12-78); Albumin Level 4.9 g/dl (3.5-5.0); Albumin/Globulin Ratio 1.8 (1.1-1.8); Alkaline Phosphatase 61 U/L (38-126); Aspartate Amino Transferase 25 U/L (14-36); Bilirubin,Total 1.1 mg/dl (0.2-1.3); Blood Urea Nitrogen 16 mg/dl (7-17); Calcium 10.2 mg/dl (8.4-10.2); Carbon Dioxide 28 mmol/L (22.0-30.0); Chloride 103 mmol/L (98-107); Chol/HDL Ratio 2.4 (1-3.5); Cholesterol 115 mg/dl (140-200); Estimated Glomerular Filt Rate 84 ml/min (>60); GFR (African American) 102 ML/MIN (>60); Globulin 2.7 g/dL (1.3-3.2); Glucose 89 mg/dl (74-100); HDL Cholesterol 47 mg/dl (40-60); Sodium 140 mmol/L (136-145); Total Protein,Serum 7.6 g/dl (6.3-8.2); Triglycerides 104 mg/dl (30-150); VLDL Cholesterol 21 mg/dL (0-40)
[2023-03-05 16:15] LABS: Direct LDL Cholesterol 44.41 mg/dL (100-129)
[2023-03-05 16:36] LABS: Thyroid Stimulating Hormone 2.59 uIU/mL (0.465-4.68)
== END ==
PROVIDERS: PCP Internal Medicine; Visit Provider Internal Medicine
DX: Z01.419 Encounter for gynecological examination (general) (routine) without abnormal findings (principal)
CPT/HCPCS: 80053; 80061; 84443; 85025

== ENCOUNTER 2023-05-13 09:27 | Day surgery (SDC) | payer BC, OTHER, SELFPAY ==
[2023-05-12 13:24] VITALS: BMI 38.6
[2023-05-13 09:43] VITALS: BP 152/62; PULSE 69; RESP 18; TEMP 36.2; O2SAT 96
[2023-05-13 10:01] VITALS: O2SAT 96
--- NOTE | 2023-05-13 10:32 | HMH.SCOPE ---
Procedure: Date: 05/13/23 Patient Date of :: 1960 Procedure Performed:: Colonoscopy Indications:: Screening Performing Provider:: Luis Reyes MD Referring Provider:: Dr. Teixeira Sedation:: Monitored anesthesia care Procedure:: After informed consent was obtained the patient was taken to the endoscopy suite. Sedation ensued after the patient was transferred to the left lateral decubitus position. Pulse, blood pressure, and oxygen saturation were monitored throughout the procedure. Digital rectal exam revealed no significant abnormality. The colonoscope was placed in position. The entire colon was evaluated. The colonoscope was carefully removed and the patient was transferred to recovery in stable condition. Please see findings and specimens below for detail. Findings:: Bowel preparation moderate (some areas fair and some areas fairly poor) Scattered diverticulosis (mostly sigmoid) Profound lack of relaxation/spasticity Specimens:: None Recommendations:: Repeat colonoscopy in 3-5 years with alternate bowel preparation secondary to moderate preparation and profound lack of relaxation/spasticity. Complications:: No immediate Estimated blood obtained (mL): 0 Colonoscopy Component Colonoscopy Component Was a colonoscopy performed during today's procedure?: Yes Recommended follow up colonoscopy of at least 10 years?: No If no, follow up colonoscopy recommended in ___ years?: (See above) Reason for not recommending >/= 10 yr follow-up interval?: (See above)
[2023-05-13 10:33] VITALS: BP 168/88; PULSE 61; RESP 16; TEMP 36.2; O2SAT 95
--- NOTE | 2023-05-13 10:36 | P.PNANES_ITS ---
[facility] Disclaimer: The information contained in this section may have been updated after the patient was seen, as this information can be updated by other users. Medical History Abnormal echocardiogram Abnormal stress test Cystocele Mixed stress and urge urinary incontinence Severe mitral valve regurgitation Surgical History History of ankle surgery History of bladder surgery Hx of colonoscopy Family History Father Heart attack Diabetes Mother Cancer breast Sister Cancer breast Social History Smoking Status: Never smoker alcohol intake: never substance use type: denies use current occupational status: retired Travel in the last 8 weeks: None household members: spouse [facility] Anesthesia Checklist Patient Identification Patient Identification: Verbal (Name & ) Structural Data Admitted From: Home Planned Operative Procedure/s: colonoscopy Consent for Planned Operative Procedure(s) Verified: Yes Additional verifications Anesthesia Reactions: No Hx Blood Transfusions: No Blood Transfusion Reaction: No Airway Assessment Mallampati Score:: Class II C-Spine Mobility Assessed: Yes TMJ Mobility Assessed: Yes Dentition: Good Dentition Neurological Assessment Level of Consciousness: Awake, Alert and Appropriate Anesthesia Plan Anesthesia Risk discussed: Yes Anesthesia Plan: Verified ASA Class: II Anesthesia Type: MAC
[2023-05-13 10:43] VITALS: BP 146/77; PULSE 54; RESP 17; O2SAT 95
[2023-05-13 10:53] VITALS: BP 132/63; PULSE 60; RESP 16; O2SAT 96
[2023-05-13 11:03] VITALS: BP 127/68; PULSE 48; RESP 17; O2SAT 99
== END 2023-05-13 11:30 | disposition home or self-care (01) ==
PROVIDERS: PCP Internal Medicine; Visit Provider Surgery
PROC: 0DJD8ZZ Inspection of Lower Intestinal Tract, Via Natural or Artificial Opening Endoscopic (ICD-10-PCS; CPT 45378; principal; 2023-05-13 10:30)
DX: Z12.11 Encounter for screening for malignant neoplasm of colon (principal); K57.30 Diverticulosis of large intestine without perforation or abscess without bleeding
CPT/HCPCS: 45378

== ENCOUNTER 2024-02-26 08:50 | Outpatient (CLI) | payer MEDICARE, OTHER, SELFPAY ==
[2024-02-26 09:13] LABS: Basophils # 0.1 K/mm3 (0-0.2); Eosinophils # 0.2 K/mm3 (0.0-0.4); Eosinophils % 3.1 % (0.1-12.0); Hematocrit 41.5 % (37.0-47.0); Hemoglobin 13.6 g/dL (12.2-16.2); Lymphocytes # 2.3 K/mm3 (0.7-4.5); Lymphocytes % 33.6 % (10-50); Mean Corpuscular HGB Conc 32.7 g/dL (31.8-35.4); Mean Corpuscular Hemoglobin 31.4 pg (27.0-31.2); Mean Platelet Volume 9.9 fl (7.4-10.4); Monocytes # 0.7 K/mm3 (0.1-1.0); Monocytes % 10.6 % (1.7-9.3); Neutrophils # 3.5 K/mm3 (1.8-7.8); Neutrophils % 51.7 % (37.0-80.0); Platelet Count 247 K/mm3 (142-424); Red Blood Count 4.32 M/mm3 (4.20-5.40); Red Cell Distribution Width 14.4 % (11.5-17.5); White Blood Count 6.8 K/mm3 (4.8-10.8)
[2024-02-26 09:42] LABS: Alanine Aminotransferase 13 U/L (12-78); Albumin Level 4.3 g/dl (3.5-5.0); Albumin/Globulin Ratio 1.7 (1.1-1.8); Alkaline Phosphatase 43 U/L (38-126); Anion Gap 11.6 mEq/L (5-15); Aspartate Amino Transferase 23 U/L (14-36); Bilirubin,Total 0.9 mg/dl (0.2-1.3); Blood Urea Nitrogen 20 mg/dl (7-17); Calcium 10.6 mg/dl (8.4-10.2); Carbon Dioxide 27 mmol/L (22.0-30.0); Chloride 106 mmol/L (98-107); Chol/HDL Ratio 2.2 (1-3.5); Cholesterol 130 mg/dl (140-200); Estimated Glomerular Filt Rate 84 ml/min (>60); GFR (African American) 102 ML/MIN (>60); Globulin 2.6 g/dL (1.3-3.2); Glucose 108 mg/dl (74-100); HDL Cholesterol 58 mg/dl (40-60); Potassium 4.6 mmoL/L (3.5-5.1); Sodium 140 mmol/L (136-145); Total Protein,Serum 6.9 g/dl (6.3-8.2); Triglycerides 101 mg/dl (30-150); VLDL Cholesterol 20 mg/dL (0-40)
[2024-02-26 09:53] LABS: Direct LDL Cholesterol 41.21 mg/dL (100-129)
[2024-02-26 10:13] LABS: Thyroid Stimulating Hormone 3.64 uIU/mL (0.465-4.68)
== END 2024-02-26 23:59 | disposition home or self-care (01) ==
LOC: LAB 08:52
PROVIDERS: PCP Internal Medicine; Visit Provider Internal Medicine
DX: I10 Essential (primary) hypertension (principal); E78.5 Hyperlipidemia, unspecified; E03.9 Hypothyroidism, unspecified
CPT/HCPCS: 36415; 80050; 80053; 80061; 84443; 85025

== ENCOUNTER 2024-03-12 08:17 | Outpatient (CLI) | payer MEDICARE, OTHER, SELFPAY ==
--- NOTE | 2024-03-12 08:17 | MM_ITS ---
PROCEDURE INFORMATION: Exam: MG Bilateral Screening 3D Mammography Exam date and time: 03/12/2024 8:15 AM Age: 63 years old Clinical indication: Screening. Her sister and her maternal grandmother had breast cancer. TECHNIQUE: Imaging protocol: Bilateral Screening tomosynthesis and 2D mammography including computer-aided detection (CAD) when performed. COMPARISON: 1. MG MM DIG SCREENING MAMM BI W/CAD 02/06/2023 7:46 AM 2. MG MM DIG SCREENING MAMM BI W/CAD 04/27/2020 8:03 AM 3. MG MM DIG SCREENING MAMM BI W/CAD 04/14/2019 9:26 AM 4. MG DMDXUAVL DIG MAMM-DX UNI A/VWS-LT W/CAD 10/21/2016 5:12 PM FINDINGS: MAMMOGRAPHY: Breast composition: There are scattered areas of fibroglandular density. Mass: None. Architectural distortion: None. Calcifications: No suspicious calcifications. Asymmetric density: No developing asymmetry. Skin thickening: None. Axillary adenopathy: None. IMPRESSION: No mammographic evidence of malignancy. Annual screening is recommended unless otherwise clinically indicated. ASSESSMENT: BI-RADS Category 1: Negative
--- NOTE | 2024-03-12 08:17 | XR_ITS ---
FINAL REPORT CLINICAL HISTORY: Screening for osteoporosis COMPARISON: None FINDINGS: Using L1-4, the bone mineral density of the spine is 1.407 g/cm2, corresponding to T-score of 3.3 which is within normal limits. Using the left hip, the bone mineral density of the femoral neck is 0.960 g/cm2, corresponding to a T-score of 0.1 which is within normal limits. Using the right hip, the bone mineral density of the femoral neck is 1.035 g/cm2, corresponding to a T-score of 0.8 which is within normal limits. FRAX not reported because all T-scores at or above -1.0. NOTE: T-score: Standard deviation compared with peak bone mass of young adult mean. *Following the recommendations of the International Society of Bone densitometry, classification of hip BMD is based on the lower of two T-scores; total hip or femoral neck. IMPRESSION: Normal bone mineral density of the lumbar spine and hips. Reviewed, Interpreted and Dictated by Bert Mao III, MD Transcribed by Kyra Villar Authenticated and [facility]
--- NOTE | 2024-03-12 09:01 | XR_ITS ---
FINAL REPORT CLINICAL HISTORY: Right hip pain and stiffness FINDINGS: Right hip Three views were obtained. There is no acute fracture or dislocation. There are moderate degenerative changes of the right hip and mild degenerative changes of the left hip. No soft tissue abnormality is identified. IMPRESSION: Degenerative changes as above. Reviewed, Interpreted and Dictated by Bert Mao III, MD Transcribed by Mireille Proctor Authenticated and [facility]
== END 2024-03-12 23:59 | disposition home or self-care (01) ==
LOC: RAD 08:17
PROVIDERS: PCP Internal Medicine; Visit Provider Internal Medicine
DX: Z12.31 Encounter for screening mammogram for malignant neoplasm of breast (principal); M25.551 Pain in right hip; Z78.0 Asymptomatic menopausal state; Z13.820 Encounter for screening for osteoporosis
CPT/HCPCS: 73502; 77063; 77067; 77080

== ENCOUNTER 2024-05-26 09:22 | Outpatient (CLI) | payer MEDICARE, OTHER, SELFPAY ==
[2024-05-26 11:14] LABS: Triiodothryronine (T3) Uptake 35 % (23.5-40.5)
[2024-05-26 11:15] LABS: Free Thyroxine Index 3.1 ug/dL (5.93-13.13); T4 (Thyroxine) 8.8 ug/dl (5.53-11.0)
[2024-05-27 09:33] LABS: Triiodothyronine (T3) Free 2.8 pg/mL (2.0-4.4)
== END 2024-05-26 23:59 | disposition home or self-care (01) ==
LOC: LAB 09:24
PROVIDERS: PCP Internal Medicine; Visit Provider Nurse Practitioner Obstetrics & Gynecology
DX: E03.9 Hypothyroidism, unspecified (principal)
CPT/HCPCS: 36415; 84436; 84443; 84479; 84481